=== PATIENT | male | born 1945 | race Caucasian/White ===

== ENCOUNTER → 2019-08-17 07:32 | Outpatient (CLI) | payer MEDICARE, OTHER, SELFPAY ==
--- NOTE | 2019-08-17 | DI.MRI.S_ITS ---
PROCEDURE: MR HEAD/BRAIN WO/W CON INDICATIONS: HEADACHE TECHNIQUE: Noncontrast sagittal T1 spin echo, axial T2 fast spin echo, axial FLAIR, axial gradient echo, axial diffusion and ADC through the brain. Axial/sagittal/coronal 3-D CISS, thin-slice axial T1 spin echo with fat saturation through the skull base. After the administration of contrast, axial and coronal thin-slice T1 spin echo with fat saturation through the skull base, axial T1 spin echo with fat saturation through the brain. COMPARISON: None. FINDINGS: Image quality: Excellent. Trigeminal nerves: Cisternal and cavernous segments of the trigeminal nerves follow normal course have a normal contour. No abnormal mass or abnormal postcontrast enhancement identified along the cisternal or cavernous sinus of the trigeminal nerves. The cavernous sinus enhances normally. The visualized segments of the divisions of the trigeminal nerves normal course and normal caliber. No abnormal signal, abnormal mass mass or suspicious post contrast enhancement identified along the visualized segments of the divisions of the trigeminal nerves. CSF spaces: Ventricles are normal in size and shape. No extra-axial fluid collections. Basal cisterns are patent. Brain: No intracranial bleeds or mass effects. There is mild, diffuse cerebral volume loss. There is mild periventricular and subcortical white matter chronic microvascular ischemic change. No abnormal intracranial enhancement. Diffusion weighted images show no acute ischemic insults. Allen-white matter interface is intact. No abnormal GRE weighted artifacts in the brain parenchyma. Brainstem is normal. Normal intravascular flow voids are present. Skull and face: Calvarial marrow signal is normal. Orbits appear normal. Sinuses: Mucosal thickening noted in the maxillary sinuses bilaterally, right greater than left. Small mucous retention cyst versus polyp noted in the right maxillary sinus. mastoids appear clear. IMPRESSION: 1. No acute intracranial disease process. 2. No abnormal intracranial mass or suspicious post contrast enhancement. 3. No abnormal mass, abnormal signal or suspicious post contrast enhancement involving the trigeminal nerves are trigeminal nerve divisions. 4. Mild, diffuse cerebral volume loss. 5. Mild periventricular and subcortical white matter chronic microvascular ischemic changes. 6. Mild bilateral maxillary sinus mucosal thickening. Dictated by: Layla Stovall MD, PhD on 08/17/2019 at 15:40 Approved by: Layla Stovall MD, PhD on 08/17/2019 at 15:46
== END ==
PROVIDERS: PCP Family Medicine; Visit Provider Family Medicine
DX: R51 Headache (principal); J32.0 Chronic maxillary sinusitis
CPT/HCPCS: 70553; A9579

== ENCOUNTER → 2019-08-31 10:30 | Outpatient (CLI) | payer MEDICARE, OTHER, SELFPAY ==
--- NOTE | 2019-08-31 | DI.RAD.S_ITS ---
PROCEDURE: XR CERVICAL SPINE 2V OR 3V INDICATIONS: RIGHT SIDED HEADACHE TECHNIQUE: 3 view(s) of the cervical spine were acquired. COMPARISON: None. FINDINGS: Bones: No fractures or dislocations to the T1 level. The lateral masses of C1 appear intact on the odontoid view. No suspicious bony lesions. Soft tissues: No prevertebral soft tissue swelling. IMPRESSION: Mild to moderate degenerative disc disease best seen at the lower third of the cervical spine but no fracture or subluxation identified. Dictated by: Janak Matt M.D. on 08/31/2019 at 12:22 Approved by: Janak Matt M.D. on 08/31/2019 at 12:23
== END ==
PROVIDERS: PCP Family Medicine; Visit Provider Family Medicine
DX: R51 Headache (principal); M50.320 Other cervical disc degeneration, mid-cervical region, unspecified level
CPT/HCPCS: 72040

== ENCOUNTER → 2020-03-01 14:53 | Outpatient (ROUT) | payer MEDICARE, OTHER, SELFPAY | PROVIDERS: PCP Family Medicine; Visit Provider Family Medicine | DX: R31.9 Hematuria, unspecified (principal) | CPT/HCPCS: 87086 ==

== ENCOUNTER → 2020-04-27 11:59 | Outpatient (CLI) | payer MEDICARE, OTHER, SELFPAY ==
--- NOTE | 2020-04-27 | DI.CT.S_ITS ---
PROCEDURE: CT ABDOMEN PELVIS WO/W CON INDICATIONS: HEMATURIA TECHNIQUE: Optional 5 mm thick noncontrast images acquired from the diaphragm to the symphysis pubis. After the administration of intravenous contrast, 5 mm thick images acquired from the diaphragm to the symphysis pubis after a 10-minute delay. 2 mm thick coronal and sagittal reformats were then performed of the kidneys and ureters. For radiation dose reduction, the following was used: automated exposure control, adjustment of mA and/or kV according to patient size. COMPARISON: None. FINDINGS: Image quality: Excellent. Lung bases: Lung bases are clear. Heart size is normal. Urinary system: Both kidneys are normal in size, without hydronephrosis or nephrolithiasis on pre-contrast images. No perinephric fat stranding. There is normal bilateral renal enhancement. Renal calyces appear normal in morphology when filled with contrast. Opacified portions of both ureters demonstrate normal caliber. Bladder is collapsed although there may be some circumferential wall thickening. Please correlate with urinalysis data. Left renal cyst. Other solid organs: Liver is normal in size and enhancement. Subcentimeter poorly defined hepatic hypodensities, statistically small cysts, however technically too small to characterize accurately. Gallbladder negative. Biliary system is non dilated. Pancreas enhances normally. Spleen is normal in size and enhancement. Low-attenuation nodule seen involving the left adrenal gland measuring 2.5 cm with attenuation measuring 9 Hounsfield units suggestive of adenoma. Peritoneum and bowel: Bowel loops demonstrate normal wall thickness and caliber. No free fluid or air. Normal appendix. Colonic diverticulosis is seen without evidence of acute complication. Large amount of stool. Nodes and vessels: No retroperitoneal or mesenteric adenopathy by size criteria. Aorta and inferior vena cava are normal in size. Abdominal wall: No ventral hernias. Pelvis: No pathologic free pelvic fluid. No inguinal hernias or adenopathy. Bones: No suspicious bony lesions. No vertebral body compression fractures. IMPRESSION: Possible mural thickening involving the bladder, raising possibilities of cystitis however suboptimal evaluation given largely decompressed state. Please maddi Alejo elate clinically and with urinalysis data Presumed left adrenal adenoma No urolithiasis. No evidence of urinary obstruction Dictated by: Mikie Travis M.D. on 04/27/2020 at 13:16 Approved by: Mikie Travis M.D. on 04/27/2020 at 13:26
== END ==
PROVIDERS: PCP Family Medicine; Referring Provider Family Medicine; Visit Provider Family Medicine
DX: R31.9 Hematuria, unspecified (principal); N28.1 Cyst of kidney, acquired; K57.90 Diverticulosis of intestine, part unspecified, without perforation or abscess without bleeding; E27.9 Disorder of adrenal gland, unspecified
CPT/HCPCS: 74178; Q9967

== ENCOUNTER → 2020-05-09 10:20 | Outpatient (CLI) | payer MEDICARE, OTHER, SELFPAY ==
--- NOTE | 2020-05-09 | DI.US.S_ITS ---
PROCEDURE: US RENAL COMPLETE INDICATIONS: BLADDER DISORDER TECHNIQUE: Real-time scanning was performed of the kidneys and bladder, with image documentation. COMPARISON: [facility], CT, CT ABDOMEN PELVIS WO/W CON, 04/27/2020, 12:05. FINDINGS: Kidneys: Kidneys are normal in size. Right kidney measures 12.1 cm long; left kidney measures 12.5 cm long. Right renal cortical thickness is 1.4 cm; left renal cortical thickness is 1.7 cm. Renal cortical echotexture is normal. No hydronephrosis or nephrolithiasis. No suspicious solid mass lesions. Bladder: Pre-void bladder volume is 589 mL. Post-void residual is 115 mL. Pre-void images demonstrate no intraluminal masses or stones. On pre-void images, neither ureteral jets are noted with color Doppler interrogation. (Of note, ureteral jets may not be detectable in up to 25% of cases due to insufficient differences in specific gravity between ureteral and bladder urine). Bladder wall trabeculations present. Miscellaneous: No free pelvic fluid. Prostate is prominent. IMPRESSION: 1. Normal appearance of the kidneys. 2. 115 cc postvoid residual present and multiple bladder trabeculations are noted suggesting chronic partial bladder outlet obstruction. Correlate clinically. Dictated by: Дмитрий GALEAS Interpreted: Houston Otero MD on 05/09/2020 at 12:18 Approved by: Janak Matt M.D. on 05/11/2020 at 14:06
== END ==
PROVIDERS: PCP Family Medicine; Referring Provider Family Medicine; Visit Provider Family Medicine
DX: N32.89 Other specified disorders of bladder (principal)
CPT/HCPCS: 76770

== ENCOUNTER → 2020-08-14 16:17 | Outpatient (CLI) | payer MEDICARE, OTHER, SELFPAY ==
[2020-08-17 16:14] LABS: Prostate Specific Antigen 1.17 ng/mL (0.10-4.00)
== END ==
PROVIDERS: PCP Family Medicine; Referring Provider Specialist; Visit Provider Specialist
DX: N40.0 Benign prostatic hyperplasia without lower urinary tract symptoms (principal)
CPT/HCPCS: 36415; 84153

== ENCOUNTER → 2022-03-01 08:18 | Outpatient (CLI) | payer MEDICARE, OTHER, SELFPAY ==
[2022-03-01 09:22] LABS: BUN Creatinine Ratio 18.7 (6-22); Blood Urea Nitrogen 17 mg/dL (9-20); Calcium 8.9 mg/dL (8.4-10.2); Carbon Dioxide 25 mmol/L (22-32); Chloride 108 mmol/L (98-107); Estimated Glomerular Filt Rate > 60 mL/min (>60); Glucose 108 mg/dL (80-110); HEMOLYSIS < 15 (0-50); Sodium 141 mmol/L (137-145); Uric Acid 5.9 mg/dL (3.5-8.5)
[2022-03-01 09:56] LABS: Prostate Specific Antigen 1.38 ng/mL (0.10-4.00)
== END ==
PROVIDERS: PCP Family Medicine; Referring Provider Specialist; Visit Provider Specialist
DX: N40.1 Benign prostatic hyperplasia with lower urinary tract symptoms (principal); M10.072 Idiopathic gout, left ankle and foot; N13.8 Other obstructive and reflux uropathy
CPT/HCPCS: 36415; 80048; 84153; 84550

== ENCOUNTER → 2022-04-09 14:02 | Outpatient (CLI) | payer MEDICARE, OTHER, SELFPAY ==
--- NOTE | 2022-04-09 | DI.MRI.S_ITS ---
PROCEDURE: MR WRIST RT WO CON INDICATIONS: Traumatic arthropathy, right wrist TECHNIQUE: Noncontrast coronal proton density fast spin echo and T2 fast spin echo with fat saturation; coronal 3-D gradient echo, axial T1 spin echo and T2 fast spin echo with fat saturation, sagittal T1 spin echo through the wrist. COMPARISON: None. FINDINGS: Image quality: Excellent. Bones and cartilage: Moderate osteoarthritic changes are noted throughout wrist joints with joint space narrowing, subchondral sclerosis and nonspecific subcortical cyst formation. No fracture or dislocation. No evidence of osteonecrosis. No suspicious intraosseous lesion. Carpal ligaments: The scapholunate and lunotriquetral ligaments appear intact. In the absence of intra-articular contrast, the extrinsic carpal ligaments are not well identified. On sagittal images, the pisohamate ligament appears intact. Triangular fibrocartilage complex: Signal abnormality involving triangular fibrocartilage near its ulnar insertion is seen. The adjacent meniscal homolog appears normal in the absence of intra-articular contrast. The extensor carpi ulnaris tendon is mildly thickened at the level of ulnar styloid. Tendons and soft tissues: The carpal tunnel structures appear normal, including the median nerve. The ulnar nerve appears normal within Guyon's canal. All six extensor tendon compartments demonstrate normal morphology, without pathologic tendon sheath fluid. No soft tissue ganglion cysts. IMPRESSION: 1. Moderate wrist joint osteoarthritis. No fracture or dislocation. No evidence of osteonecrosis. No suspicious intraosseous lesion. 2. Intrinsic and extrinsic wrist ligaments are grossly intact. 3. Suggestion of triangular fibrocartilage tear near its ulnar insertion. 4. Tendinosis involving extensor carpi ulnaris tendon at the level of ulnar styloid. Rest of the wrist tendons are intact. Dictated by: Bryan Herrera M.D. on 04/09/2022 at 16:16 Approved by: Bryan Herrera M.D. on 04/09/2022 at 16:34
== END ==
PROVIDERS: PCP Family Medicine; Referring Provider Family Medicine; Visit Provider Family Medicine
DX: M12.531 Traumatic arthropathy, right wrist (principal); M25.539 Pain in unspecified wrist; S63.501A Unspecified sprain of right wrist, initial encounter; M19.031 Primary osteoarthritis, right wrist; M77.8 Other enthesopathies, not elsewhere classified
CPT/HCPCS: 73221

== ENCOUNTER → 2023-10-28 13:37 | Outpatient (ROUT) | payer MEDICARE, OTHER, SELFPAY ==
[2023-10-28 13:46] LABS: Add Manual Diff / Slide Review NO; Basophils Absolute Auto 0 /uL (0-100); Basophils Percent Auto 0.9 % (0-2); Eosinophils Absolute Auto 200 /uL (0-450); Eosinophils Percent Auto 3.3 % (2-4); Hematocrit 42.3 % (41-53); Hemoglobin 14.9 g/dL (13.5-17.5); Lymphocytes Absolute Auto 1400 /uL (1100-4500); Lymphocytes Percent Auto 28.9 % (25-40); Mean Corpuscular HGB Conc 35.2 % (30-36); Mean Corpuscular Hemoglobin 30.5 PG (26-34); Mean Corpuscular Volume 86.6 fL (80-100); Monocytes Absolute Auto 300 /uL (0-900); Monocytes Percent Auto 6.6 % (3-14); Neutrophils Absolute Auto 2900 /uL (1500-7000); Neutrophils Percent Auto 60.3 % (50-75); Platelet Count 185 X10^3/uL (150-400); Red Blood Cell Count 4.89 X10^6/uL (4.5-5.9); White Blood Cell Count 4.8 X10^3/uL (4.5-11.0)
[2023-10-28 14:18] LABS: Hemoglobin A1C% w Est Avg Glu 5.1 % (4.0-6.0)
[2023-10-28 14:32] LABS: Alanine Aminotransferase 29 IU/L (<50); Albumin 4.3 g/dL (3.5-5.0); Albumin Globulin Ratio 1.7 (1.0-2.8); Alkaline Phosphatase 53 U/L (38-126); Aspartate Aminotransferase 36 IU/L (17-59); BUN Creatinine Ratio 23.4 (6-22); Bilirubin Total 1.1 mg/dL (0.2-1.3); Blood Urea Nitrogen 18 mg/dL (9-20); Calcium 9.9 mg/dL (8.4-10.2); Carbon Dioxide 24 mmol/L (22-32); Chloride 107 mmol/L (98-107); Estimated Glomerular Filt Rate > 60 mL/min (>60); Globulin 2.5 g/dL (1.7-4.1); Glucose 87 mg/dL (80-110); Potassium 4.2 mmol/L (3.4-5.1); Sodium 139 mmol/L (137-145); Total Protein 6.8 g/dL (6.3-8.2); Uric Acid 6.2 mg/dL (3.5-8.5)
[2023-10-28 14:35] LABS: HEMOLYSIS 56 (0-50)
[2023-10-28 15:01] LABS: Prostate Specific Antigen 1.46 ng/mL (0.10-4.00)
[2023-10-28 15:36] LABS: Vitamin D 25 Hydroxy (D3) 45.8 ng/mL (30.0-100.0)
== END ==
PROVIDERS: PCP Family Medicine; Visit Provider Family Medicine
DX: Z00.00 Encounter for general adult medical examination without abnormal findings (principal); Z13.1 Encounter for screening for diabetes mellitus; I10 Essential (primary) hypertension; N40.0 Benign prostatic hyperplasia without lower urinary tract symptoms; E66.9 Obesity, unspecified
CPT/HCPCS: 80053; 82306; 83036; 84153; 84550; 85025